=== PATIENT | male | born 1960 | race Caucasian/White ===

== ENCOUNTER 2019-11-11 00:04 | Emergency (ER) | payer OTHER ==
[~2019-11-11] VITALS: Ht 177.8 cm; Wt 95.2 kg
[~2019-11-11 00:04] MED LIST: Amoxicillin875 MG PO; Prednisone20 MG PO
[2019-11-11] MEDS ORDERED: NYST237S MT (00:57)
[2019-11-11] MEDS ORDERED: Augmentin 875-1 EACH PO (01:54)
== END 2019-11-11 02:10 | disposition home or self-care (01) ==
LOC: ER 00:04
DX: J18.9 Pneumonia, unspecified organism (principal); J02.0 Streptococcal pharyngitis
CPT/HCPCS: 36415; 71045; 86308; 99283-25; A9270-GY